=== PATIENT | female | born 1985 | race Hispanic/Latino ===

== ENCOUNTER → 2020-06-21 | Outpatient (CLI) | payer BC | END | disposition home or self-care (01) | LOC: OIH 11:14 | PROVIDERS: ATTEND Family Medicine | DX: M51.06 Intervertebral disc disorders with myelopathy, lumbar region (principal); G57.02 Lesion of sciatic nerve, left lower limb; M62.81 Muscle weakness (generalized); M51.36 Other intervertebral disc degeneration, lumbar region | CPT/HCPCS: 72100 ==